=== PATIENT | female | born 1945 | race Caucasian/White ===

== ENCOUNTER 2023-08-19 12:52 | Outpatient (AMB) | payer MEDICARE, SELFPAY ==
[2023-08-19 13:19] VITALS: BMI 36.9
--- NOTE | 2023-08-19 13:19 | A.OFFVIS_ITS ---
Intake VS Expanded 08/19/23 13:19 08/26/23 21:38 Height 5 ft 1 in 5 ft 1 in Weight 195 lb 1.745 oz 195 lb BMI 36.9 36.8 Intake Visit Reasons: DM Medication List - Last Reconciled 08/26/[address], LDN cholecalciferol (vitamin D3) 50 mcg PO DAILY cyanocobalamin (vitamin B-12) 1,000 mcg PO DAILY lisinopril 2.5 mg PO DAILY metformin 1,000 mg PO BIDWMEAL HPI Nutrition Presentation Details Pt presents for MNT for T2DM. Pt was referred by Dr. Breann Tan from [facility] Pt reports she prepares own meals, Typical meal 5-7 am cottage cheese and peaches or egg and fruit or egg and bread , coffee with cream and sugar and splenda 11-12 : peanut butter and jelly on whit e bread and glass of milk and 1/2 c wine and corn and cheese curls , tea bag dinner:protein / starch (porkchop , water or slider , v8 or/and water smoking: denies walks: 3 x/wk 20-30 min fruits : 1-2 /d ves serving/d dairy: 2 /d starches < 18 serving/d prote: 10 -12 serving/d physical activity: daily life + walks 2 times a week smoking denies etoh: - rare RFT-Trtidts-Gm.Jeor Equation Height 5 ft 1 in Weight 195 lb Resting Metabolic Rate 1312.16 Calculated Activity Level Mild Activity Calories Needed to Maintain Weight 1804.22 Diagnosis Nutrition problem #1 food nutri know defi As related to (etiology) #1 diagnosis As evidenced by (sign/symptom) #1 food recall Monitoring/Goals Nutrition problem monitoring level of knowledge/skill Nutrition goal/outcome list 3 CHO foods, wt loss 5lbs in 2 months and list 3 high fiber foods Outcome progress verbalized understanding Learning/Education Readiness to learn good Stages of change action Educational materials provided Yes (meal planning) Most Recent Diabetes Results: No Data to Display [facility] Medical History (Updated 08/26/23 @ 21:[address], LDN) Asthma HTN (hypertension) Vitamin B 12 deficiency Hyperlipidemia Assessment & Plan Assessment & Plan (1) T2DM (type 2 diabetes mellitus): Code(s): E11.9 - Type 2 diabetes mellitus without complications Plan wt: 89 kg Est kcal needs as per MSJ:1800 (40% carb, 30% protein/fat) Est fluid needs as per 25-30 ml/d: 2200 Est prot per day as per 1 g/kg bw: 89 Recommend fiber intake : 8-10 g per day and gradually increase to 25-28 g per day for women and 35-38 g for men or as tolerated Recommend sodium intake per day : less than 2000 mg Educated patient on: ( R = reviewed V = verbalizes understanding N/R = needs review N/A = not applicable * Food sources of carbohydrate, adequate serving sizes and its role in various health conditions: R V * Differences between complex carbohydrates a simple carbohydrates, role of fiber in diet: R * Differences between types of fats and role in diet (mono on saturated fat fatty acids, saturated fatty acids, trans fats): R * Food sources of sodium in salt and healthy modifications for heart health in kidney health: R * Vitamins and minerals: R * Healthy plate method concept: R V * Physical activity: Benefits a precaution: R V * Dietary prevention of Hyperglycemia: R V Patient Instructions: follow healthy plate method Reduce on pastries/chips and the like, choose a fruit instead - aim a 2 fruits/day Coding Level of Care Code Nutr Indiv Intake (58584) Diagnoses T2DM (type 2 diabetes mellitus) E11.9 Time Spent (min) 30
[2023-08-26 21:38] VITALS: BMI 36.8
== END 2023-08-19 13:49 | disposition home or self-care (01) ==
PROVIDERS: Visit Provider Dietitian, Registered
DX: E11.9 Type 2 diabetes mellitus without complications (principal)

== ENCOUNTER → 2023-08-19 12:52 | Outpatient (BNVA) | payer MEDICARE, SELFPAY | PROVIDERS: Visit Provider Dietitian, Registered | DX: E11.9 Type 2 diabetes mellitus without complications (principal) | CPT/HCPCS: 97802 ==

== ENCOUNTER 2023-09-16 14:05 | Outpatient (AMB) | payer MEDICARE, SELFPAY ==
[2023-09-16 14:10] VITALS: BMI 36.4
--- NOTE | 2023-09-16 14:10 | A.OFFVIS_ITS ---
Intake VS Expanded 09/16/23 14:10 Height 5 ft 1 in Weight 192 lb 10.944 oz BMI 36.4 Intake Visit Reasons: T2DM HPI Nutrition Presentation Details Pt presents for MNT f/u for T2DM Pt reports working on small diet modifications. Pt has challenges trying new foods/modifications. Pt reports taking metformin 1000 mg twice a day for DM. Pt does not monitor bg, as per Pts's choice. Fluid intake tea or coffee in AM 4-6 oz and 8-16 oz of water per day , no juice/soda Most Recent Diabetes Results: No Data to Display [facility] Medical History (Updated 08/26/23 @ 21:40 by Carla Mo, RD, LDN) Asthma HTN (hypertension) Vitamin B 12 deficiency Hyperlipidemia Assessment & Plan Assessment & Plan (1) T2DM (type 2 diabetes mellitus): Code(s): E11.9 - Type 2 diabetes mellitus without complications Plan wt: 89 kg (08/2023), 88 kg (09/2023) Est kcal needs as per MSJ:1800 (40% carb, 30% protein/fat) Est fluid needs as per 25-30 ml/d: 2200 Est prot per day as per 1 g/kg bw: 89 Recommend fiber intake : 8-10 g per day and gradually increase to 25-28 g per day for women and 35-38 g for men or as tolerated Recommend sodium intake per day : less than 2000 mg Educated patient on: ( R = reviewed V = verbalizes understanding N/R = needs review N/A = not applicable * Food sources of carbohydrate, adequate serving sizes and its role in various health conditions: R V * Differences between complex carbohydrates a simple carbohydrates, role of fi bobbi in diet: R * Differences between types of fats and role in diet (mono on saturated fat fatty acids, saturated fatty acids, trans fats): R * Food sources of sodium in salt and healthy modifications for heart health in kidney health: R * Vitamins and minerals: R * Healthy plate method concept: R V * Physical activity: Benefits a precaution: R V * Dietary prevention of Hyperglycemia: R V Patient Instructions: Increase fluids daily, goal 8-9 oz of water/low sugar beverages with meals/snacks Work on adding a non starchy vegetables at supper (asparagus with low fat gravy as example) Coding Level of Care Code Nutr Indiv Subseq ([id number]) Diagnoses T2DM (type 2 diabetes mellitus) E11.9 Time Spent (min) 30
== END 2023-09-16 14:26 | disposition home or self-care (01) ==
PROVIDERS: Visit Provider Dietitian, Registered
DX: E11.9 Type 2 diabetes mellitus without complications (principal)

== ENCOUNTER → 2023-09-16 14:05 | Outpatient (BNVA) | payer MEDICARE, SELFPAY | PROVIDERS: Visit Provider Dietitian, Registered | DX: E11.9 Type 2 diabetes mellitus without complications (principal) | CPT/HCPCS: 97803 ==

== ENCOUNTER 2023-10-27 13:45 | Outpatient (AMB) | payer MEDICARE, SELFPAY ==
[2023-10-27 14:17] VITALS: BMI 36.9
--- NOTE | 2023-10-27 14:17 | MHC.AMNUTRGE ---
Intake VS Expanded 10/27/23 14:17 Height 5 ft 1 in Weight 195 lb 5.273 oz BMI 36.9 Intake Visit Reasons: T2DM/LVM HPI Nutrition Presentation Details Pt presents for MNT for T2DM Pt reports her A1c was at 7.9% (10/2023) Pt admits to challenges in modifying consumption of high sugar foods. Pt verbalizes relationship of large portions of foods/carbs/sugars and blood glucose level fluids: 1 - 2 cups of :water, juice/tea/coffee- admits to decrease intake of fluids Most Recent Diabetes Results: No Data to Display [facility] Medical History (Updated 08/26/23 @ 21:40 by Carla Mo, RD, LDN) Asthma HTN (hypertension) Vitamin B 12 deficiency Hyperlipidemia Assessment & Plan Assessment & Plan (1) T2DM (type 2 diabetes mellitus): Code(s): E11.9 - Type 2 diabetes mellitus without complications Plan wt: 89 kg (08/2023), 88 kg (09/2023) Est kcal needs as per MSJ:1800 (40% carb, 30% protein/fat) Est fluid needs as per 25-30 ml/d: 2200 Est prot per day as per 1 g/kg bw: 89 Recommend fiber intake : 8-10 g per day and gradually increase to 25-28 g per day for women and 35-38 g for men or as tolerated Recommend sodium intake per day : less than 2000 mg Educated patient on: ( R = reviewed V = verbalizes understanding N/R = needs review N/A = not applicable Food sources of carbohydrate, adequate serving sizes and its role in various health conditions: R V Differences between complex carbohydrates a simple carbohydrates, role of fiber in diet: R Differences between types of fats and role in diet (mono on saturated fat fatty acids, saturated fatty acids, trans fats): R Food sources of sodium in salt and healthy modifications for heart health in kidney health: R Vitamins and minerals: R Healthy plate method concept: R V Physical activity: Benefits a precaution: R V Dietary prevention of Hyperglycemia: R V Patient Instructions: Aim at having 3 bottles of water/low sugar beverages (48 oz) per day alternate between oatmeal and eggs for breakfast Follow healthy plate method at dinner (vegetable/protein and starch or fruit) Keep physically active as able , goal 30 minutes walk daily or as tolerated unless otherwise specified by your doctor. Coding Level of Care Code Nutr Indiv Subseq ([id number]) Diagnoses T2DM (type 2 diabetes mellitus) E11.9 Time Spent (min) 30
== END 2023-10-27 14:35 | disposition home or self-care (01) ==
PROVIDERS: Visit Provider Dietitian, Registered
DX: E11.9 Type 2 diabetes mellitus without complications (principal)

== ENCOUNTER → 2023-10-27 13:45 | Outpatient (BNVA) | payer MEDICARE, SELFPAY | PROVIDERS: Visit Provider Dietitian, Registered | DX: E11.9 Type 2 diabetes mellitus without complications (principal) | CPT/HCPCS: 97803 ==

== ENCOUNTER 2024-01-19 13:35 | Outpatient (AMB) | payer MEDICARE, SELFPAY ==
[2024-01-19 13:41] VITALS: BMI 36.0
--- NOTE | 2024-01-19 13:41 | MHC.AMNUTRGE ---
Intake VS Expanded 01/19/24 13:41 Height 5 ft 1 in Weight 190 lb 11.198 oz BMI 36.0 Intake Visit Reasons: T2DM/LVM HPI Nutrition Presentation Details Pt presents for MNT f/u for T2DM reports walking 3-4 times a week (40 minutes), goal is to walk daily meal pattern B: oatmeal with water , 1/2 and 1/2 sugar L: yogurt or egg salad sand or peanut butter and jelly , diet soda or water or glass of milk D: chicken thigh/corn/boiled potatoes, water or diet soda snack : nuts, fruit fast food meals 1-2 x/wk no concerns expressed today Most Recent Diabetes Results: No Data to Display [facility] Medical History (Updated 08/26/23 @ 21:[address], LDN) Asthma HTN (hypertension) Vitamin B 12 deficiency Hyperlipidemia Assessment & Plan Assessment & Plan (1) T2DM (type 2 diabetes mellitus): Code(s): E11.9 - Type 2 diabetes mellitus without complications Plan wt: 89 kg (08/2023), 88 kg (09/2023), 86 kg (12/2023) Est kcal needs as per MSJ:1800 (40% carb, 30% protein/fat) Est fluid needs as per 25 ml/d: 2200 Est prot per day as per 1 g/kg bw: 86 Recommend fiber intake : 8-10 g per day and gradually increase to 25-28 g per day for women and 35-38 g for men or as tolerated Recommend sodium intake per day : less than 2000 mg Educated patient on: ( R = reviewed V = verbalizes understanding N/R = needs review N/A = not applicable Food sources of carbohydrate, adequate serving sizes and its role in various health conditions: R V Differences between complex carbohydrates a simple carbohydrates, role of fiber in diet: R Differences between types of fats and role in diet (mono on saturated fat fatty acids, saturated fatty acids, trans fats): R Food sources of sodium in salt and healthy modifications for heart health in kidney health: R Vitamins and minerals: R Healthy plate method concept: R V Physical activity: Benefits a precaution: R V Dietary prevention of Hyperglycemia: R V Patient Instructions: Keep hydrated by having water with meals , aim at having 1-2 cups of water per day Be cautious of salt/sodium in soups and salted foods/snacks - choose lower salt options have a fruit in place of chips as snack continue walking as tolerated Coding Level of Care Code Nutr Indiv Subseq ([id number]) Diagnoses T2DM (type 2 diabetes mellitus) E11.9 Time Spent (min) 30
== END 2024-01-19 14:02 | disposition home or self-care (01) ==
PROVIDERS: Visit Provider Dietitian, Registered
DX: E11.9 Type 2 diabetes mellitus without complications (principal)

== ENCOUNTER → 2024-01-19 13:35 | Outpatient (BNVA) | payer MEDICARE, SELFPAY | PROVIDERS: Visit Provider Dietitian, Registered | DX: E11.9 Type 2 diabetes mellitus without complications (principal) | CPT/HCPCS: 97803 ==

== ENCOUNTER 2024-04-20 13:33 | Outpatient (AMB) | payer MEDICARE, SELFPAY ==
[2024-04-20 13:37] VITALS: BMI 36.0
--- NOTE | 2024-04-20 13:37 | MHC.AMNUTRGE ---
VS Expanded 04/20/24 13:37 Height 5 ft 1 in Weight 190 lb 11.198 oz BMI 36.0 Intake Visit Reasons: T2DM/CONFIRMED Nutrition Presentation Details: Pt presents for MNT f/u for t2dm Pt reports having challenges with portions, acknowledges dietary indiscretion BS Monitoring Most Recent Diabetes Results: No Data to Display [facility] Medical History (Updated 08/26/23 @ 21:40 by Carla Mo, RD, LDN) Asthma HTN (hypertension) Vitamin B 12 deficiency Hyperlipidemia Assessment & Plan Assessment & Plan (1) T2DM (type 2 diabetes mellitus): Code(s): E11.9 - Type 2 diabetes mellitus without complications Category: Medical Plan wt: 89 kg (08/2023), 88 kg (09/2023), 86 kg (12/2023), 86 kg (12/2023) 87 kg (04/2024) Est kcal needs as per MSJ:1800 (40% carb, 30% protein/fat) Est fluid needs as per 25 ml/d: 2200 Est prot per day as per 1 g/kg bw: 86 Recommend fiber intake : 8-10 g per day and gradually increase to 25-28 g per day for women and 35-38 g for men or as tolerated Recommend sodium intake per day : less than 2000 mg Educated patient on: ( R = reviewed V = verbalizes understanding N/R = needs review N/A = not applicable Food sources of carbohydrate, adequate serving sizes and its role in various health conditions: R V Differences between complex carbohydrates a simple carbohydrates, role of fiber in diet: R Differences between types of fats and role in diet (mono on saturated fat fatty acids, saturated fatty acids, trans fats): R Food sources of sodium in salt and healthy modifications for heart health in kidney health: R Vitamins and minerals: R Healthy plate method concept: R V Physical activity: Benefits a precaution: R V Dietary prevention of Hyperglycemia: R V Patient Instructions: Continue working on following healthy plate method Choose lower sugar/calorie snacks- see list of options have fish at least twice/wk in place of pork work on choosing no sugar added foods/beverages Coding Level of Care Code Nutr Indiv Subseq ([id number]) Diagnoses T2DM (type 2 diabetes mellitus) E11.9 Time Spent (min) 30
== END 2024-04-20 14:06 | disposition home or self-care (01) ==
PROVIDERS: Visit Provider Dietitian, Registered
DX: E11.9 Type 2 diabetes mellitus without complications (principal)

== ENCOUNTER → 2024-04-20 13:33 | Outpatient (BNVA) | payer MEDICARE, SELFPAY | PROVIDERS: Visit Provider Dietitian, Registered | DX: E11.9 Type 2 diabetes mellitus without complications (principal) | CPT/HCPCS: 97803 ==